=== PATIENT | female | born 1940 | race Caucasian/White ===

== ENCOUNTER 2020-02-24 05:29 | Day surgery (SDC) | payer MEDICARE, BC ==
[2020-02-17 13:49] LABS: BASOPHILS # (AUTO) 0.1 X10'3 (0-0.2); BASOPHILS % (AUTO) 1.1 % (0-1); EOSINOPHILS # (AUTO) 0.3 X10'3 (0-0.9); EOSINOPHILS % (AUTO) 4.5 % (0-6); LYMPHOCYTES # (AUTO) 1.8 X10'3 (1.1-4.8); LYMPHOCYTES % (AUTO) 24.8 % (21-51); MEAN CORPUSCULAR HEMOGLOBIN 29.4 PG (27.0-31.0); MEAN CORPUSCULAR HGB CONC 32.4 g/dL (33.0-36.5); MEAN CORPUSCULAR VOLUME 90.8 FL (78-98); MEAN PLATELET VOLUME 9.2 FL (7.4-10.4); MONOCYTES # (AUTO) 0.9 X10'3 (0-0.9); MONOCYTES % (AUTO) 11.4 % (2-12); NEUTROPHILS # (AUTO) 4.3 X10'3 (1.8-7.7); NEUTROPHILS % (AUTO) 58.2 % (42-75); PRE OP HEMATOCRIT 41.8 % (35.0-45.0); PRE OP HEMOGLOBIN 13.5 g/dL (12.0-16.0); PRE OP PLATELET COUNT 247 X10'3 (140-440); RED CELL DISTRIBUTION WIDTH 14.3 % (11.5-14.5)
[2020-02-17 13:54] LABS: CLARITY,URINE CLEAR (Clear); COLOR,URINE YELLOW (Yellow); GLUCOSE, URINE NEGATIVE (Neg); KETONES,URINE NEGATIVE (Neg); LEUKOCYTE ESTERASE ,URINE SMALL (Neg); NITRITES, URINE NEGATIVE (Neg); OCCULT BLOOD,URINE NEGATIVE (Neg); PROTEIN,URINE NEGATIVE (Neg); UROBILINOGEN,URINE 0.2 E.U/dL (0.2-1.0)
[2020-02-17 13:57] LABS: UA COLLECTION TYPE NON-SPECIFIED
[2020-02-17 13:59] LABS: PRE OP INR 1.1 INR; PRE OP PROTIME 11.4 SECONDS (9.0-12.0)
[2020-02-17 13:59] LABS: BACTERIA,URINE FEW /HPF (Neg); MUCUS STRANDS FEW /LPF (Neg); RBC,URINE 0-2 /HPF (0-2); SQUAMOUS EPITHELIAL CELL,UR MODERATE /LPF (FEW); WBC,URINE 0-4 /HPF (0-4)
[2020-02-17 14:01] LABS: ALBUMIN 3.6 G/DL (3.4-5.0); ALKALINE PHOSPHATASE 58 IU/L (46-116); BLOOD UREA NITROGEN 18 MG/DL (7-18); BUN/CREATININE RATIO 16.8 (6.6-38.0); CALCIUM 9.3 MG/DL (8.5-10.1); CHLORIDE 106 MMOL/L (99-107); CREATININE 1.07 MG/DL (0.40-0.90); PRE OP ALT 15 U/L (30-65); PRE OP ANION GAP 9 (8-16); PRE OP AST 19 U/L (10-37); PRE OP BILIRUB, TOTAL 0.3 MG/DL (0.0-1.0); PRE OP GLUCOSE 104 MG/DL (70-104); PRE OP SODIUM 147 MMOL/L (135-145); TOTAL CARBON DIOXIDE 32.2 MMOL/L (24-32); TOTAL PROTEIN 7.1 G/DL (6.4-8.2); eGFR 49 ML/MIN
[2020-02-24] VITALS (15 sets, daily range): BP systolic 128–167; BP diastolic 75–99
[~2020-02-24] VITALS: Ht 162.6 cm; Wt 83.4 kg
[~2020-02-24 05:29] MED LIST: CALC-1197 PO; DABI75CA3 PO; FLEC100T2 PO; FLUT1AER INH; LEVA15HF4 INH; LEVO50TA8 PO; MONT10TA26 PO; OMEP40CA13 PO; PRAV40TA3 PO; ringers solution, lacted 1,000 ML IV SCH
[2020-02-24] MEDS ORDERED: famotidine 20mg tablet PO ONE (05:30)
[2020-02-24] MEDS ORDERED: albuterol 2.5 MG/3 ML nebule NEB ONE (05:30)
[2020-02-24] MEDS ORDERED: ceFAZolin 2gm in dextrose, iso 50 ML IV ONE (05:30)
[2020-02-24] MEDS ORDERED: LIDOcaine 1% (10mg/ml) 2ml vial ONE (06:01)
[2020-02-24] MEDS ORDERED: BUPIVAcaine/PF 2.5 mg/ml (0.25%) 30ml vial ONE (06:37)
--- NOTE | 2020-02-24 06:49 | NUR ---
SHOWERED WITH SOAP AND WATER X2, PT HAS HIBICLENS ALLERGY Addendum: 02/24/20 at 0658 by Juli Rg RN Amended: Links added.
[2020-02-24] MEDS ORDERED: fentaNYL/PF 50MCG/1 ML 2ML syringe ONE (06:55)
[2020-02-24] MEDS ORDERED: sevoflurane 250ml liquid IH ONE (07:22)
[2020-02-24] MEDS ORDERED: furosemide 20 MG/2 ML vial ONE (07:22)
[2020-02-24] MEDS ORDERED: sugammadex 200mg/2ml injection IV ONE (08:30)
[2020-02-24] MEDS ORDERED: dexamethasone sod phosphate 4mg/ml inj. ONE (08:30)
[2020-02-24] MEDS ORDERED: rocuronium 10mg/ml inj IV ONE (08:30)
[2020-02-24] MEDS ORDERED: ondansetron/PF 4mg/2ml inj ONE (08:30)
[2020-02-24] MEDS ORDERED: LIDOcaine 2% (20mg/ml) 5ml vial ONE (08:30)
[2020-02-24] MEDS ORDERED: ePHEDrine 50MG/ML INJ. ONE (08:30)
[2020-02-24] MEDS ORDERED: propofol inj 20 ML IV ONE (08:30)
--- NOTE | 2020-02-24 08:55 | NUR ---
Received from OR via [facility], accompanied by Anesthesiologist Tamra and report given by Anesthesiolgist. ART line to wrist wrist zeroed and good waveform, SBP high MD to treat but otherwise VS WNL. 20G to right wrist also LR at 100cc/hr. Pt opens eyes to questions. Incision to upper sternum open to air dermabond. Mask to 10L. Will monitor clsoely.
[2020-02-24] MEDS ORDERED: ringers solution, lacted 1,000 ML IV SCH (09:02)
[2020-02-24] MEDS ORDERED: ondansetron/PF 4mg/2ml inj IV PRN (09:05)
[2020-02-24] MEDS ORDERED: fentaNYL/PF 50MCG/1 ML 2ML syringe IV PRN (09:05)
[2020-02-24] MEDS ORDERED: labetalol 20mg/4ml (5mg/ml) syringe IV ONE (09:14)
[2020-02-24] MEDS: fentaNYL/PF 50MCG/1 ML 2ML syringe IV PRN ×2 (09:21→09:42)
--- NOTE | 2020-02-24 09:40 | NUR ---
Pt waking up and responding to questions but not quite able to tolerate being off oxygen, sats drop to 86-89% on room air. Pt states she uses her inhaler several times a day. Called Dr Barboza who states to order a duo-neb.
[2020-02-24] MEDS ORDERED: ipratropium/albuterol 3ml nebule NEB PRN (10:05)
[2020-02-24] MEDS ORDERED: ipratropium/albuterol 3ml nebule ONE (10:16)
--- NOTE | 2020-02-24 11:13 | NUR ---
Pt discharged to vehicle with grand-daughter at side, by wheelchair without incident. IV was DC'd. Pt ambulated, voided, received extensive teaching on wound care and especially respiratory teaching. Pt did not receive pain script states okay to take tylenol and ibuprofen at home. Pt and granddaughter verbalized understanding of all other DC instructions. All belongings returned back. Pt has had sats greater than 93% on room air since breathing treatment and now coughing and deep breathing without any problems. Pt has oximeter at home and states she will monitor.
== END 2020-02-24 11:13 | disposition home or self-care (01) ==
LOC: PAS 05:29
PROVIDERS: ATTEND Thoracic Surgery (Cardiothoracic Vascular Surgery)
DX: R59.0 Localized enlarged lymph nodes (principal); R05 Cough; I88.8 Other nonspecific lymphadenitis; I48.0 Paroxysmal atrial fibrillation; K21.9 Gastro-esophageal reflux disease without esophagitis; I10 Essential (primary) hypertension; E78.5 Hyperlipidemia, unspecified; J44.9 Chronic obstructive pulmonary disease, unspecified; E03.9 Hypothyroidism, unspecified; M19.90 Unspecified osteoarthritis, unspecified site; Z91.09 Other allergy status, other than to drugs and biological substances; Z98.890 Other specified postprocedural states; Z96.612 Presence of left artificial shoulder joint; Z98.41 Cataract extraction status, right eye; Z98.42 Cataract extraction status, left eye; Z98.51 Tubal ligation status; Z96.653 Presence of artificial knee joint, bilateral; Z91.040 Latex allergy status; Z87.891 Personal history of nicotine dependence; Z11.59 Encounter for screening for other viral diseases; Z79.899 Other long term (current) drug therapy
CPT/HCPCS: 36415; 39402; 71045; 71046; 80053; 81001; 83036; 85025; 85610; 85730; 86885; 86900; 86901; 87088; 93005; 94640; 94760; C9399; J1100; J1940; J2001; J2405; J2704; J3010; J3490; J7120; U0003; A4215; A4618; A6258; A7000